=== PATIENT | male | born 1985 | race Caucasian/White ===

== ENCOUNTER 2017-05-31 04:19 | Inpatient (IN) | payer BC, OTHER ==
[2017-05-31 04:56] LABS: ALT (SGPT) 27 U/L (8-55); AST (SGOT) 40 U/L (5-34); Albumin 4.7 g/dL (3.5-5.0); Alkaline Phosphatase 86 U/L (40-150); Anion Gap 17 mmol/L (10-20); BUN (Urea Nitrogen) 11 mg/dL (8.9-20.6); Bilirubin, Total 0.5 mg/dL (0.2-1.2); CK (CPK) 365 U/L (30-200); Calc. Creatinine Clearance 0 mL/min (70-130); Carbon Dioxide 24 mmol/L (22-29); Chloride 101 mmol/L (98-107); Estimated GFR-MDRD 79; Globulin 3.1 g/dL (2.4-3.5); Glucose 145 mg/dL (70-105); Lipase 43 U/L (8-78); Protein, Total 7.8 g/dL (6.0-8.3); Sodium 139 mmol/L (136-145)
[2017-05-31] MEDS ORDERED: CEFAZOLIN/Water 2 GM/20 ML SYRINGE ONE (05:02)
[2017-05-31 05:04] LABS: Potassium 2.9 mmol/L (3.5-5.1)
[2017-05-31] MEDS ORDERED: Lidocaine 1% w/Epinephrine 1:200K 30 ML VIAL ONE (05:04)
[2017-05-31 05:07] LABS: INR-International Normal Ratio 1.1; Prothrombin Time 14.3 SEC (12.0-14.7)
[2017-05-31 05:08] LABS: PTT 35.1 SEC (22.9-36.1)
[2017-05-31] MEDS ORDERED: Ondansetron HCl/PF 4 MG/2 ML Vial ONE (05:17)
[2017-05-31] MEDS ORDERED: Fentanyl 100 MCG/2 ML VIAL ONE (05:19)
[2017-05-31 05:33] LABS: Band 7 % (5-11); Eosinophils 1 % (0-10); Hemoglobin 16.2 g/dL (14.0-18.0); Lymphocytes 17 % (21-51); MDiff Complete? YES; Mean Corpuscular HGB CONC 33.2 g/dL (32.0-36.0); Mean Corpuscular Hemoglobin 29.9 pg (27.0-31.0); Mean Platelet Volume 7.3 fL (7.4-10.4); Monocytes 4 % (0-10); Neutrophil 71 % (42-75); Platelet Count 399 thou/uL (130-400); RBC Distribution Width 11.9 % (11.5-14.5); Red Blood Cell (RBC) Count 5.43 mill/uL (4.70-6.10); White Blood Cell (WBC) Count 26.5 thou/uL (4.8-10.8)
[2017-05-31] MEDS ORDERED: Bacitracin Zinc 1 Packet ONE (06:48)
[2017-05-31] MEDS ORDERED: Ketorolac Tromethamine 30 MG/ML VIAL ONE (06:53)
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
[2017-05-31] MEDS ORDERED: Ondansetron ODT 4 MG TAB PO PRN (08:30)
[2017-05-31] MEDS ORDERED: Rib Fracture Protocol PO SCH (08:30)
[2017-05-31] MEDS ORDERED: Dextrose 5% in Water 1,000 ML IV PRN (08:30)
[2017-05-31] MEDS ORDERED: Ondansetron HCl/PF 4 MG/2 ML Vial IVP PRN (08:30)
[2017-05-31] MEDS ORDERED: Dextrose 50% Abboject 50 ML SYRINGE SLOW IVP PRN (08:30)
[2017-05-31] MEDS: Sodium Chloride 0.9% 1,000 ML IV SCH ×2 (08:40→22:10)
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
[2017-05-31 09:17] LABS: Anion Gap 14 mmol/L (10-20); BUN (Urea Nitrogen) 14 mg/dL (8.9-20.6); Calc. Creatinine Clearance 0 mL/min (70-130); Calcium 9.3 mg/dL (7.8-10.44); Carbon Dioxide 23 mmol/L (22-29); Chloride 105 mmol/L (98-107); Estimated GFR-MDRD 84; Glucose 160 mg/dL (70-105); Potassium 3.5 mmol/L (3.5-5.1); Sodium 138 mmol/L (136-145)
[2017-05-31 09:18] VITALS: BMI 31.8
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
[2017-05-31] MEDS: Cyclobenzaprine 10 MG TAB PO PRN (10:03)
--- NOTE | 2017-05-31 10:10 | RAD ---
RIGHT CLAVICLE 2 VIEWS: Date: 05/31/17 INDICATION: Pain, trauma. FINDINGS: There is mildly displaced mid shaft right clavicular fracture with approximately 1 shaft width inferi or displacement of the distal fracture fragment. IMPRESSION: Right clavicular fracture with displacement. POS: [facility]
[2017-05-31 10:27] LABS: Hemoglobin 14.7 g/dL (14.0-18.0)
[2017-05-31 10:30] LABS: Potassium 3.6 mmol/L (3.5-5.1)
[2017-05-31] MEDS: Ibuprofen 800 MG TAB PO SCH ×3 (10:43→22:08)
[2017-05-31] MEDS: Acetaminophen 500 MG TAB PO SCH ×3 (10:49→22:08)
[2017-05-31] MEDS: traMADol HCl 50 MG TAB PO SCH ×3 (10:49→22:36)
[2017-05-31] MEDS ORDERED: Ketorolac Tromethamine 30 MG/ML VIAL IVP SCH (11:00)
[2017-05-31] MEDS: Scopolamine 1.5 mg/72 hour Patch TD SCH (11:13)
[2017-05-31] MEDS ORDERED: ISOVUE-370 76%-LOCM 1 ML ONE (11:31)
[2017-05-31] MEDS ORDERED: Ibuprofen 800 MG TAB PO SCH (12:00)
[2017-05-31] MEDS ORDERED: Acetaminophen 500 MG TAB PO SCH (12:00)
[2017-05-31] MEDS ORDERED: traMADol HCl 50 MG TAB PO SCH (12:00)
[2017-05-31 13:34] LABS: Bilirubin Negative (Negative); Blood, Urine Negative (Negative); Clarity CLEAR (Clear); Glucose, Urine (Dipstick) Negative (Negative); Leukocyte Negative (Negative); Nitrite Negative (Negative); Protein, Urine (Dipstick) Trace mg/dL (Neg-Trace); Urobilinogen 0.2 mg/dL (0.2-1.0)
[2017-05-31 13:35] LABS: Specific Gravity, Urine Greater than 1.060 (1.002-1.036)
[2017-05-31] MEDS: Gabapentin 300 MG CAP PO SCH ×2 (15:38→22:10)
[2017-05-31] MEDS ORDERED: CEFAZOLIN/Water 2 GM/20 ML SYRINGE SLOW IVP SCH (17:30)
[2017-05-31 18:13] LABS: Hemoglobin 13.9 g/dL (14.0-18.0)
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
[2017-06-01] MEDS: Acetaminophen 500 MG TAB PO SCH ×4 (05:01→21:12)
[2017-06-01] MEDS: Ibuprofen 800 MG TAB PO SCH ×4 (05:02→21:13)
[2017-06-01] MEDS: traMADol HCl 50 MG TAB PO SCH ×4 (05:02→21:13)
[2017-06-01 06:14] LABS: #Eosinphils 0.1 thou/uL (0.0-0.7); #Lymphocytes 1.9 thou/uL (1.20-3.40); #Monocytes 0.9 thou/uL (0.11-0.59); %Basophils 0.2 % (0.0-1.0); %Eosinophils 1.3 % (0.0-10.0); %Lymphocytes 19.1 % (21.0-51.0); %Monocytes 9.1 % (0.0-10.0); %Neutrophils 70.3 % (42.0-75.0); Hemoglobin 13.7 g/dL (14.0-18.0); Mean Corpuscular HGB CONC 34.2 g/dL (32.0-36.0); Mean Corpuscular Hemoglobin 31.2 pg (27.0-31.0); Mean Corpuscular Volume 91.1 fl (80.0-94.0); Mean Platelet Volume 7.5 fL (7.4-10.4); Platelet Count 240 thou/uL (130-400); RBC Distribution Width 11.9 % (11.5-14.5); Red Blood Cell (RBC) Count 4.38 mill/uL (4.70-6.10)
[2017-06-01 07:06] LABS: Anion Gap 10 mmol/L (10-20); BUN (Urea Nitrogen) 9 mg/dL (8.9-20.6); Calc. Creatinine Clearance 157 mL/min (70-130); Calcium 8.9 mg/dL (7.8-10.44); Carbon Dioxide 27 mmol/L (22-29); Chloride 107 mmol/L (98-107); Estimated GFR-MDRD Greater than 90; Glucose 102 mg/dL (70-105); Magnesium 2.5 mg/dL (1.6-2.6); Phosphorus 3.1 mg/dL (2.3-4.7); Potassium 3.3 mmol/L (3.5-5.1); Sodium 141 mmol/L (136-145)
[2017-06-01] MEDS ORDERED: Fentanyl 100 MCG/2 ML VIAL ONE ×2 (07:20→09:20)
[2017-06-01] MEDS ORDERED: Midazolam HCl 2 mg/2 ml Vial ONE (07:20)
[2017-06-01] MEDS ORDERED: CEFAZOLIN/Water 2 GM/20 ML SYRINGE ONE (07:48)
[2017-06-01] MEDS ORDERED: EPINEPHrine 1 MG/ML AMP ONE (07:58)
[2017-06-01] MEDS ORDERED: Bupivacaine/Epinephrine 0.25% 30 ML VIAL ONE (07:58)
[2017-06-01] MEDS ORDERED: Morphine 4 MG/ML VIAL ONE (11:44)
[2017-06-01] MEDS: Ketorolac Tromethamine 30 MG/ML VIAL IVP SCH ×2 (11:54→18:11)
[2017-06-01] MEDS ORDERED: Lidocaine 1% PF 5 ML VIAL ONE (11:59)
[2017-06-01] MEDS ORDERED: Ketorolac Tromethamine 30 MG/ML VIAL ONE (11:59)
[2017-06-01] MEDS ORDERED: PROPOFOL 200 MG/20 ML VIAL ONE (11:59)
[2017-06-01] MEDS ORDERED: Ketorolac Tromethamine 30 MG/ML VIAL IVP SCH (12:00)
[2017-06-01] MEDS ORDERED: Morphine 4 MG/ML VIAL SLOW IVP SCH (12:15)
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
[2017-06-01] MEDS: Gabapentin 300 MG CAP PO SCH ×3 (13:55→21:14)
[2017-06-01] MEDS: Sodium Chloride 0.9% 1,000 ML IV SCH (13:55)
[2017-06-01] MEDS ORDERED: Morphine 4 MG/ML Carpuject SLOW IVP PRN (14:22)
[2017-06-01] MEDS ORDERED: Morphine 4 MG/ML VIAL IV PRN (14:25)
[2017-06-01 14:42] LABS: Hemoglobin 13.5 g/dL (14.0-18.0)
[2017-06-01] MEDS ORDERED: Potassium Chloride 20 MEQ TAB PO SCH (15:45)
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
[2017-06-02] MEDS: Acetaminophen 500 MG TAB PO SCH ×4 (04:58→20:55)
[2017-06-02] MEDS: Ibuprofen 800 MG TAB PO SCH ×4 (04:58→20:55)
[2017-06-02] MEDS: traMADol HCl 50 MG TAB PO SCH ×4 (04:58→20:55)
[2017-06-02 06:04] LABS: #Eosinphils 0.1 thou/uL (0.0-0.7); #Lymphocytes 1.8 thou/uL (1.20-3.40); #Monocytes 0.9 thou/uL (0.11-0.59); #Neutrophils 7.1 thou/uL (1.40-6.50); %Basophils 0.3 % (0.0-1.0); %Eosinophils 1.4 % (0.0-10.0); %Lymphocytes 17.9 % (21.0-51.0); %Monocytes 8.7 % (0.0-10.0); %Neutrophils 71.6 % (42.0-75.0); Hemoglobin 12.9 g/dL (14.0-18.0); Mean Corpuscular HGB CONC 33.3 g/dL (32.0-36.0); Mean Corpuscular Hemoglobin 30.7 pg (27.0-31.0); Mean Corpuscular Volume 92.1 fl (80.0-94.0); Mean Platelet Volume 7.3 fL (7.4-10.4); Platelet Count 229 thou/uL (130-400); RBC Distribution Width 11.8 % (11.5-14.5); White Blood Cell (WBC) Count 9.9 thou/uL (4.8-10.8)
[2017-06-02] MEDS: Gabapentin 300 MG CAP PO SCH ×3 (08:42→20:56)
[2017-06-02] MEDS: Terbinafine 250 MG TAB PO SCH (10:54)
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
[2017-06-02] MEDS: Senokot S 8.6-50 MG TAB PO SCH (20:56)
[2017-06-02] MEDS: Cyclobenzaprine 10 MG TAB PO PRN (22:35)
[2017-06-03] MEDS: Acetaminophen 500 MG TAB PO SCH ×3 (04:12→16:08)
[2017-06-03] MEDS: Ibuprofen 800 MG TAB PO SCH ×3 (04:12→16:08)
[2017-06-03] MEDS: traMADol HCl 50 MG TAB PO SCH ×3 (04:13→16:08)
[2017-06-03] MEDS ORDERED: Polyethylene Glycol 3350 17 GM Packet PO SCH (09:00)
[2017-06-03] MEDS: Gabapentin 300 MG CAP PO SCH ×2 (09:36→16:08)
[2017-06-03] MEDS: Senokot S 8.6-50 MG TAB PO SCH (09:37)
[2017-06-03] MEDS: Terbinafine 250 MG TAB PO SCH (09:43)
[2017-06-03] MEDS: Cyclobenzaprine 10 MG TAB PO PRN (09:43)
[2017-06-03] MEDS: Scopolamine 1.5 mg/72 hour Patch TD SCH (10:26)
[2017-06-03 12:21] VITALS: TEMP 98
[2017-06-03 16:28] VITALS: BP 118/73
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
--- NOTE | 2017-06-15 14:27 | EKG ---
Test Reason : Blood Pressure : / mmHG Vent. Rate : 086 BPM Atrial Rate : 086 BPM P-R Int : 132 ms QRS Dur : 086 ms QT Int : 346 ms P-R-T Axes : 050 075 049 degrees QTc Int : 414 ms Normal sinus rhythm Normal ECG Artifact Confirmed by CARISSA OLIVARES DO ([id number]), content editor JE SANTAMARIA ([id number] on 06/15/2017 2:26:50 PM Referred By: Confirmed By:CARISSA OLIVARES DO
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
== END 2017-06-03 18:32 | disposition home or self-care (01) | DRG 576 ==
LOC: ERS 04:19 → SURG A 05:26
PROVIDERS: ADMIT Specialist; ATTEND Specialist
PROC: 0HQ0XZZ Repair Scalp Skin, External Approach (ICD-10-PCS; 2017-05-31)
PROC: 0HQ1XZZ Repair Face Skin, External Approach (ICD-10-PCS; 2017-05-31)
PROC: 0HC0XZZ Extirpation of Matter from Scalp Skin, External Approach (ICD-10-PCS; 2017-05-31)
PROC: 0HR0X74 Replacement of Scalp Skin with Autologous Tissue Substitute, Partial Thickness, External Approach (ICD-10-PCS; principal; 2017-06-01)
PROC: 0HBJXZZ Excision of Left Upper Leg Skin, External Approach (ICD-10-PCS; 2017-06-01)
DX: S08.0XXA Avulsion of scalp, initial encounter (principal); S36.031A Moderate laceration of spleen, initial encounter; S22.42XA Multiple fractures of ribs, left side, initial encounter for closed fracture; S22.081A Stable burst fracture of T11-T12 vertebra, initial encounter for closed fracture; S32.011A Stable burst fracture of first lumbar vertebra, initial encounter for closed fracture; S36.030A Superficial (capsular) laceration of spleen, initial encounter; S42.001A Fracture of unspecified part of right clavicle, initial encounter for closed fracture; F32.9 Major depressive disorder, single episode, unspecified; V89.2XXA Person injured in unspecified motor-vehicle accident, traffic, initial encounter; Y92.411 Interstate highway as the place of occurrence of the external cause; S01.311A Laceration without foreign body of right ear, initial encounter
CPT/HCPCS: 12002; 12011; 36415; 70450; 71260; 72125; 74177; 80048; 80053; 81003; 82550; 83690; 83735; 84100; 85025; 85610; 85730; 86850; 86900; 86901; 93005; 94640; 96361; 96374; 96375; 99292; A4216; G0390; G8978-GP-CI; G8979-GP-CI; G8980-GP-CI; J0171; J1885; J2001; J2250; J2270; J2405; J2704; J3010; J7620; L0639

== ENCOUNTER 2017-07-10 12:41 | Outpatient (CLI) | payer OTHER ==
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
== END 2017-07-10 12:42 | disposition home or self-care (01) ==
LOC: TBSIIMAG 12:41
PROVIDERS: ATTEND Surgery
DX: S32.001A Stable burst fracture of unspecified lumbar vertebra, initial encounter for closed fracture (principal); S22.009A Unspecified fracture of unspecified thoracic vertebra, initial encounter for closed fracture; S22.088A Other fracture of T11-T12 vertebra, initial encounter for closed fracture; S32.018A Other fracture of first lumbar vertebra, initial encounter for closed fracture; M43.8X4 Other specified deforming dorsopathies, thoracic region
CPT/HCPCS: 72070; 72100

== ENCOUNTER 2017-08-21 10:35 | Outpatient (CLI) | payer OTHER ==
--- NOTE | 2017-08-21 12:44 | RAD ---
THORACIC SPINE 3 VIEWS: HISTORY: M54.5 low back pain. Wearing a brace. COMPARISON: Thoracic spine radiographs 07/10/17. FINDINGS: No further height loss of the L1 and T12 compression deformities. No new compression deformity is ap preciated. IMPRESSION: Similar appearance of the Tll, T12 and L1 compression deformities. POS: [facility]
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
== END 2017-08-21 10:36 | disposition home or self-care (01) ==
LOC: TBSIIMAG 10:35
PROVIDERS: ATTEND Surgery
DX: M54.5 Low back pain (principal)
CPT/HCPCS: 72072; 72100

== ENCOUNTER 2021-03-04 03:49 | Emergency (ER) | payer OTHER, SELFPAY | END 2021-03-04 05:14 | disposition home or self-care (01) | LOC: ERS 03:49 | DX: U07.1 COVID-19 (principal) | CPT/HCPCS: 71045; 93005 ==